=== PATIENT | female | born 1990 | race Caucasian/White ===

== ENCOUNTER 2020-03-29 16:26 | Emergency (ER) | payer OTHER, SELFPAY ==
--- NOTE | ~2020-03-29 | XR_ITS ---
EXAMINATION: XR ribs LT 2V w CXR 2V INDICATION: Left chest pain after fall TECHNIQUE: PA and lateral views of the chest and 3 views of the left ribs were obtained. COMPARISON: None. FINDINGS: The lungs are free of acute opacities. There is no pleural effusion or pneumothorax. The ca rdiomediastinal silhouette is normal. There is a nondisplaced fracture at the anterolateral aspect of the left eighth rib. IMPRESSION: 1. Nondisplaced left eighth rib fracture. 2. No acute cardiopulmonary abnormality. Reviewed, dictated and finalized at location A.
[2020-03-29 16:36] VITALS: BP 109/60; PULSE 99; RESP 18; TEMP 36.4; O2SAT 100
[2020-03-29 16:39] VITALS: RESP 22; O2SAT 100
--- NOTE | 2020-03-29 16:55 | ED.GENADULT ---
HPI - General Adult General Chief complaint: Unspecified <MICHELLE Fletcher Last Filed: 03/29/20 17:36> Stated complaint: fall, rib pain <MICHELLE Fletcher Last Filed: 03/29/20 17:36> Time Seen by Provider: 03/29/20 16:37 <MICHELLE Fletcher Last Filed: 03/29/20 17:36> Source: patient <MICHELLE Fletcher Last Filed: 03/29/20 17:36> Mode of arrival: ambulatory <MICHELLE Fletcher Last Filed: 03/29/20 17:36> Limitations: no limitations <MICHELLE Fletcher Last Filed: 03/29/20 17:36> History of Present Illness HPI narrative: This is a 30-year-old female that presents the emergency department for left-sided rib pain after a fall 3 days ago. Reports she is rearranging her furniture and tripped and fell and hit the left side of her ribs against her bedpost. Reports that she has had increasing pain in the ribs with movement and breathing. Denies fever, other injuries, or cough. <MICHELLE Fletcher Last Filed: 03/29/20 17:36> Related Data Home medications: Home Medications Medication Instructions Recorded Confirmed albuterol sulfate 1 inh INHALATION QID 03/29/20 <MICHELLE Fletcher Last Filed: 03/29/20 17:36> Allergies/adverse reactions: Allergies Allergy/AdvReac Type Severity Reaction Status Date / Time No Known Allergies Allergy Verified 03/29/20 16:41 <MICHELLE Fletcher Last Filed: 03/29/20 17:36> Review of Systems Review of Systems: Narrative: CONSTITUTIONAL: Denies fever CARDIOVASCULAR: Reports chest pain RESPIRATORY: Denies cough or dyspnea. <MICHELLE Fletcher Last Filed: 03/29/20 17:36> All systems reviewed & are unremarkable except as noted in HPI and below <MICHELLE Fletcher Last Filed: 03/29/20 17:36> [facility] Past Medical History Medical History: Medical History (Updated 03/29/20 @ 17:35 by Velma Fowler PA-C) History of asthma <Velma Fowler PA-C - Last Filed: 03/29/20 17:36> Social History Social History: Social History (Updated 03/29/20 @ 17:01 by Velam Fowler PA-C) Substance use: never Gender identity (if verbalized by the patient): Female <Velma Fowler PA-C - Last Filed: 03/29/20 17:36> Exam Narrative: Exam Narrative: GENERAL: Well-appearing, well-nourished, and in no acute distress. HEAD: Normocephalic, atraumatic. EYES: EOMI. CHEST: Clear to auscultation. No respiratory distress. No wheezes rales or rhonchi. Tender palpation of the left lateral and posterior chest wall HEART: Regular rate and rhythm. No murmur heard. Normal peripheral pulses. EXTREMITIES: Normal range of motion. No edema. SKIN: Warm, dry, no rash. NEURO: No focal deficits. Alert and oriented x3. PSYCH: Normal mood and affect <Velma Fowler PA-C - Last Filed: 03/29/20 17:36> Course Vital Signs Vital signs: Vital Signs Temperature 97.6 F 03/29/20 16:36 Pulse Rate 99 03/29/20 16:36 Respiratory Rate 18 03/29/20 16:36 Blood Pressure 109/60 03/29/20 16:36 Pulse Oximetry 100 03/29/20 16:36 Temperature 97.6 F 03/29/20 16:36 Pulse Rate 78 03/29/20 17:57 Respiratory Rate 16 03/29/20 17:57 Blood Pressure 113/87 03/29/20 17:57 Pulse Oximetry 100 03/29/20 17:57 <Velma Fowler PA-C - Last Filed: 03/29/20 17:36> Vital Signs Temperature 97.6 F 03/29/20 16:36 Pulse Rate 99 03/29/20 16:36 Respiratory Rate 18 03/29/20 16:36 Blood Pressure 109/60 03/29/20 16:36 Pulse Oximetry 100 05/25/20 16:36 Temperature 97.6 F 03/29/20 16:36 Pulse Rate 78 03/29/20 17:57 Respiratory Rate 16 03/29/20 17:57 Blood Pressure 113/87 03/29/20 17:57 Pulse Oximetry 100 03/29/20 17:57 <Brittnee Reddy MD - Last Filed: 03/29/20 18:48> Medical Decision Making MDM Narrative Medical decision making narrative: Patient presents the emergency department for left-sided rib pain after an injury 3 days
[2020-03-29] MEDS: IBUPROFEN 600 MG TABLET PO (17:03)
--- NOTE | 2020-03-29 17:33 | PC.NURSE ---
RESPIRATORY INFORMED OF ORDER FOR INCENTIVE SPIROMETER.
[2020-03-29 17:57] VITALS: BP 113/87; PULSE 78; RESP 16; O2SAT 100
== END 2020-03-29 17:57 | disposition home or self-care (01) ==
PROVIDERS: Emergency Provider General Practice
DX: S22.32XA Fracture of one rib, left side, initial encounter for closed fracture (principal); J45.909 Unspecified asthma, uncomplicated; W01.190A Fall on same level from slipping, tripping and stumbling with subsequent striking against furniture, initial encounter
CPT/HCPCS: 71046; 71100; 99283; A9270

== ENCOUNTER 2020-04-08 11:10 | Emergency (ER) | payer OTHER, SELFPAY ==
--- NOTE | ~2020-04-08 | XR_ITS ---
XR ribs LT 2V DATE: 04/08/2020 11:45 INDICATION: Increasing left-sided rib pain after injury on 03/29/2020 TECHNIQUE: 3 views of left ribs COMPARISON: None FINDINGS: No recent or old rib fractures evident. Normal heart size. The included lung zones including the left lung appear clear. No left pleural effu gonzalo or pneumothorax. IMPRESSION: Negative left ribs Reviewed, dictated and finalized at location A. IMPRESSION: Negative left ribs
[2020-04-08 11:17] VITALS: BP 121/86; PULSE 98; RESP 18; TEMP 36.4; O2SAT 100
--- NOTE | 2020-04-08 12:55 | ED.GENADULT ---
HPI - General Adult General Chief complaint: Unspecified Stated complaint: BROKEN RIBS Time Seen by Provider: 04/08/20 11:14 Source: patient and family Mode of arrival: ambulatory Limitations: no limitations History of Present Illness HPI narrative: Patient is a 30-year-old female who presents to emergency department for evaluation of left rib pain that is been present since the when she fell onto the left ribs patient notes aching pain worse with activity and movement. Patient was seen and found to have a left rib fracture at the time of the injury patient notes she has been taking hydrocodone with some improvement patient now notes over the last several days the pain has increased and is worse with inspiration activity and movement. Patient denies URI symptoms new injury or trauma. Patient presents per private vehicle Related Data Home Medications Medication Instructions Recorded Confirmed albuterol sulfate 1 inh INHALATION QID 03/29/20 Allergies Allergy/AdvReac Type Severity Reaction Status Date / Time No Known Allergies Allergy Verified 03/29/20 16:41 Review of Systems Review of Systems: All systems reviewed & are unremarkable except as noted in HPI and below PMFSH Past Medical History Medical History History of asthma Social History Social History Substance use: never Gender identity (if verbalized by the patient): Female Exam Narrative: Exam Narrative: GENERAL: Well-appearing, well-nourished, and in acute pain distress HEAD: Normocephalic, atraumatic. EYES: PERRLA and EOMI. ENT: Nares clear, no rhinorrhea or epistaxis. Mucous membranes moist. CHEST: Clear to auscultation. No respiratory distress. No wheezes rales or rhonchi. Tenderness of the left lateral ribs HEART: Regular rate and rhythm. No murmur heard. Normal peripheral pulses. ABDOMEN: Soft, nontender, nondistended EXTREMITIES: Normal range of motion. No edema. SKIN: Warm, dry, no rash. NEURO: No focal deficits. Alert and oriented x3. Cranial nerves II through XII grossly intact PSYCH: Normal mood and affect. Course Course Emergency Course: Patient in the room aware of case findings treatment plan and diagnosis noting she will sign out AMA does not wish to stay and rule out other serious causes or etiology for symptom Vital Signs Vital signs: Vital Signs Temperature 97.6 F 04/08/20 11:17 Pulse Rate 98 04/08/20 11:17 Respiratory Rate 18 04/08/20 11:17 Blood Pressure 121/86 04/08/20 11:17 Pulse Oximetry 100 04/08/20 11:17 Temperature 97.6 F 04/08/20 11:17 Pulse Rate 98 04/08/20 11:17 Respiratory Rate 18 04/08/20 11:17 Blood Pressure 121/86 04/08/20 11:17 Pulse Oximetry 100 04/08/20 11:17 Medical Decision Making MDM Narrative Medical decision making narrative: Patient opting to sign out AGAINST MEDICAL ADVICE prior to completing her documentation noting that she does not have patients to stay and would like to go home and does not wish for any further testing Vital Signs Vital Signs: Vital Signs Temperature 97.6 F 04/08/20 11:17 Pulse Rate 98 04/08/20 11:17 Respiratory Rate 18 04/08/20 11:17 Blood Pressure 121/86 04/08/20 11:17 Pulse Oximetry 100 04/08/20 11:17 Temperature 97.6 F 04/08/20 11:17 Pulse Rate 98 04/08/20 11:17 Respiratory Rate 18 04/08/20 11:17 Blood Pressure 121/86 04/08/20 11:17 Pulse Oximetry 100 04/08/20 11:17 Imaging Data Radiologist's impression: ITS Impressions Ribs X-Ray 04/08/20 11:46 IMPRESSION: Negative left ribs Discharge Plan Discharge Clinical Impression: Chest pain Patient Disposition: Left Against Medical Advice Condition: Stable Additional Instructions: Follow up with your primary care provider within 1-2 days. Go to ER for shortness of breath, difficulty breathing,
== END 2020-04-08 13:00 | disposition left against medical advice (07) ==
PROVIDERS: Emergency Provider Emergency Medicine
DX: R07.81 Pleurodynia (principal); J45.909 Unspecified asthma, uncomplicated
CPT/HCPCS: 71100; 99283

== ENCOUNTER 2022-08-16 15:28 | Emergency (ER) | payer BC, SELFPAY ==
[2022-08-16 15:29] VITALS: BP 97/62; PULSE 103; RESP 26; TEMP 36.6; O2SAT 98
[2022-08-16 15:36] VITALS: PULSE 99; O2SAT 100
--- NOTE | 2022-08-16 15:38 | ED.ASTHMA ---
HPI - Asthma General Chief Complaint: Asthma Stated Complaint: asthma attack Time Seen by Provider: 08/16/22 15:34 Source: patient and RN notes reviewed Mode of arrival: ambulatory Limitations: no limitations History of Present Illness HPI Narrative: This is a 32 year old female with history of asthma who presents for evaluation of an asthma attack . She was working around 1230 , and she was exposed to smoke. She was near the [facility] and there significant amount of smoke. She developed chest tightness, wheezing and shortness of breath. She does not have access to her inhaler. She was fine prior to smoke exposure. Related Data Home Medications Medication Instructions Recorded Confirmed albuterol sulfate 90 mcg/actuation 1 inh inhalation QID 03/29/20 aerosol inhaler Allergies Allergy/AdvReac Type Severity Reaction Status Date / Time No Known Allergies Allergy Verified 08/16/22 15:31 Review of Systems Review of Systems: All systems reviewed & are unremarkable except as noted in HPI and below Constitutional: Constitutional: Denies chills, Denies fatigue and Denies fever(s) Cardiovascular: Cardiovascular: Denies chest pain and Denies radiating jaw, neck or arm pain Respiratory: Respiratory: Denies cough, Reports dyspnea and Reports wheezing Gastrointestinal: Gastrointestinal: Denies abdominal pain, Denies nausea and Denies vomiting PMF Past Medical History Medical History (Updated 08/16/22 @ 17:16 by Brittnee Reddy MD) History of asthma Social History Social History Substance use: never Gender identity (if verbalized by the patient): Female Exam Const: General: no acute distress and alert Orientation/consciousness: patient oriented x3 Limitations: no limitations HENMT: Head: normal to inspection Eyes: Pupils: Equal, round and reactive pupils present EOM: EOMs intact bilaterally Neck: Neck: normal visual inspection Chest: Chest palpation & inspection: normal inspection of the chest Resp: Effort & Inspection: labored Auscultation: wheezes inspiratory wheezes and scattered wheezes Cardio: Rate: regular rate Rhythm: regular rhythm Heart sounds: no murmurs GI: GI Palp: Yes Soft to palpation, No Tenderness to palpation present (GI), No Guarding due to palpation present (GI) and No Rigid due to palpation Auscultation: normal bowel sounds Neuro: General: patient oriented x3, moves all extremities and CN's II-XI intact bilaterally Extrem: General: normal to inspection Psych: Mental Status: mental status grossly normal Affect: normal affect Attitude: cooperative Course Reevaluation(s) Reevaluation #1: PAtient states she feels better. HEr lungs are now clear. She will be precribed with albuterol inhaler and she is requesting nebulizer solution. Date: 08/16/22 Time: 17:12 Vital Signs Vital signs: Vital Signs Temperature 97.9 F 08/16/22 15:29 Pulse Rate 103 H 08/16/22 15:29 Respiratory Rate 26 H 08/16/22 15:29 Blood Pressure 97/62 L 08/16/22 15:29 Pulse Oximetry 98 08/16/22 15:29 Oxygen Delivery Room Air 08/16/22 15:29 Temperature 97.9 F 08/16/22 15:29 Pulse Rate 86 08/16/22 17:33 Respiratory Rate 24 H 08/16/22 17:33 Blood Pressure 108/60 08/16/22 17:33 Pulse Oximetry 98 08/16/22 17:33 Oxygen Delivery Room Air 08/16/22 15:36 MDM - Asthma Lab Data Attestation: I reviewed the patient's lab results. Discharge Plan Discharge Clinical Impression: Asthma with acute exacerbation Qualifiers: Asthma severity: mild Patient Disposition: Home, Self-Care Condition: Improved Instructions: Antibiotic Form, Asthma (ED) Prescriptions: New albuterol sulfate 90 mcg/actuation HFA aerosol inhaler 2 puff inhalation QID PRN (Reason: shortness of breath or wheezing) Qty: 6.7 0RF albuterol sulfate 2.5 mg/0.5 mL solution for nebulization 5 mg inhalation Q6H
[2022-08-16] MEDS: predniSONE 20 MG TABLET 60 MG PO (15:42)
[2022-08-16 15:50] VITALS: PULSE 79; RESP 19
[2022-08-16] MEDS: IPRATROPIUM BR 0.02% INH SOLN 0.5 MG/2.5 ML VIAL INHALATION (15:52)
[2022-08-16] MEDS: ALBUTEROL SULFATE NEB 2.5 MG/3 ML INH 5 MG INHALATION (15:52)
[2022-08-16 16:09] VITALS: PULSE 82; RESP 19
[2022-08-16 17:33] VITALS: BP 108/60; PULSE 86; RESP 24; O2SAT 98
== END 2022-08-16 17:34 | disposition home or self-care (01) ==
PROVIDERS: Emergency Provider General Practice
DX: J45.901 Unspecified asthma with (acute) exacerbation (principal)
CPT/HCPCS: 94640; 99283; J7512

== ENCOUNTER 2023-03-10 06:22 | Emergency (ER) | payer SELFPAY ==
--- NOTE | ~2023-03-10 | XR_ITS ---
EXAMINATION: XR chest 1V portable DATE: 03/10/2023 07:11 INDICATION: Shortness of breath. TECHNIQUE: A single frontal view of the chest was obtained. COMPARISON: Left rib radiographs 04/08/2020 FINDINGS: The chest demonstrates clear lungs without pneumonia, pleural effusion, or pneumothorax. Th e heart size is normal. IMPRESSION: 1. No acute cardiopulmonary disease. Reviewed, dictated and finalized at location A.
[2023-03-10 06:27] VITALS: BP 124/82; PULSE 94; RESP 21; TEMP 36.9; O2SAT 97
[2023-03-10] MEDS: methylPREDNISolone SOD SUCC 125 MG VIAL IV PUSH (06:49)
[2023-03-10] MEDS: IPRATROPIUM BR 0.02% INH SOLN 0.5 MG/2.5 ML VIAL INHALATION ×2 (07:00→07:21)
[2023-03-10] MEDS: ALBUTEROL SULFATE NEB 2.5 MG/3 ML INH INHALATION (07:00)
[2023-03-10] MEDS: LEVALBUTEROL NEB 1.25 MG/3 ML INHALATION (07:21)
--- NOTE | 2023-03-10 09:43 | ED.ASTHMA ---
HPI - Asthma General Chief Complaint: Asthma Stated Complaint: Difficulty breathing Time Seen by Provider: 03/10/23 07:04 History of Present Illness HPI Narrative: Patient is a 31-year-old female who presents ER with shortness of breath. Began this morning. She felt like she was having trouble breathing and her was smoking in the room and symptoms worsen. She was wheezing and received nebulizer treatment as well as Solu-Medrol. She is still having some wheezing. No runny nose or sore throat or productive cough. No fevers or chills or sweats. No chest pain or chest pressure. Related Data Home Medications Medication Instructions Recorded Confirmed albuterol sulfate 90 mcg/actuation 1 inh inhalation QID 03/29/20 aerosol inhaler Allergies Allergy/AdvReac Type Severity Reaction Status Date / Time No Known Allergies Allergy Verified 03/10/23 06:33 Review of Systems Review of Systems: All systems reviewed & are unremarkable except as noted in HPI and below Constitutional: Constitutional: Denies chills, Denies fatigue and Denies fever(s) ENT: Denies nasal congestion and Denies sore throat Cardiovascular: Cardiovascular: Denies chest pain and Denies radiating jaw, neck or arm pain Respiratory: Respiratory: Reports cough, Reports dyspnea and Reports wheezing PMFSH Past Medical History Medical History (Updated 03/10/23 @ 09:43 by Cisco Slade MD) History of asthma Social History Social History Substance use: never Gender identity (if verbalized by the patient): Female Exam Narrative: GENERAL: Well-appearing, well-nourished, and in no acute distress. HEAD: Normocephalic, atraumatic. ENT: Mucous membranes moist. NECK: Supple. CHEST: Expiratory wheezing bilaterally. No respiratory distress. HEART: Regular rate and rhythm. Normal peripheral pulses. EXTREMITIES: Normal range of motion. No edema. NEURO: Alert and oriented x3. PSYCH: Normal mood and affect. Course Course Emergency Course: Lungs clear to auscultation after 2 nebulizer treatments. Discharge home with steroids and a albuterol refill. Vital Signs Vital signs: Vital Signs Temperature 98.5 F 03/10/23 06:27 Pulse Rate 94 03/10/23 06:27 Respiratory Rate 21 H 03/10/23 06:27 Blood Pressure 124/82 03/10/23 06:27 Pulse Oximetry 97 03/10/23 06:27 Oxygen Delivery Room Air 03/10/23 06:27 Temperature 98.5 F 03/10/23 06:27 Pulse Rate 66 03/10/23 10:06 Respiratory Rate 16 03/10/23 10:06 Blood Pressure 119/58 L 03/10/23 10:06 Pulse Oximetry 100 03/10/23 10:06 Oxygen Delivery Room Air 03/10/23 06:27 MDM - Asthma Imaging Data Radiologist's impression: ITS Impressions Chest X-Ray 03/10/23 07:13 IMPRESSION: 1. No acute cardiopulmonary disease. Discharge Plan Discharge Clinical Impression: Asthma with acute exacerbation Patient Disposition: Home, Self-Care Condition: Stable Instructions: Asthma (ED) Additional Instructions: Return the ER if you have worsening shortness of breath, you cannot keep down food or water, you lose consciousness, you have additional concerns. Prescriptions: New prednisone 50 mg tablet 50 mg PO DAILY Qty: 7 0RF albuterol sulfate 90 mcg/actuation HFA aerosol inhaler 2 puff INHALATION QID PRN (Reason: shortness of breath or wheezing) Qty: 8 0RF No Action albuterol sulfate 90 mcg/actuation Hfa Aerosol Inhaler 1 inh INHALATION QID hydrocodone-acetaminophen 5-325 mg tablet 1 tablet PO Q6H PRN (Reason: pain) Qty: 20 0RF albuterol sulfate 90 mcg/actuation HFA aerosol inhaler 2 puff inhalation QID PRN (Reason: shortness of breath or wheezing) Qty: 6.7 0RF albuterol sulfate 2.5 mg/0.5 mL solution for nebulization 5 mg inhalation Q6H PRN (Reason: shortness of breath or wheezing) Qty: 30 0RF Follow-up/Referrals: PHYSICIAN,[facility]
[2023-03-10 10:06] VITALS: BP 119/58; PULSE 66; RESP 16; O2SAT 100
== END 2023-03-10 10:06 | disposition home or self-care (01) ==
PROVIDERS: Emergency Provider Emergency Medicine
DX: J45.901 Unspecified asthma with (acute) exacerbation (principal)
CPT/HCPCS: 71045; 96374; 99284; J2930